=== PATIENT | female | born 1960 | race Caucasian/White ===

== ENCOUNTER 2021-01-07 18:29 | Inpatient (IN) ==
[2021-01-07] MEDS ORDERED: dexAMETHasone**PF** 10 MG/ML VIAL IV ONE (18:57)
--- NOTE | 2021-01-07 19:14 | XRay Report ---
XR chest 1V portable HISTORY: 60 years-old Female Dyspnea acute shortness of breath COMPARISON: Chest radiograph and CTA chest 12/30/2020 TECHNIQUE: Portable AP view of the chest FINDINGS: Cardiac silhouette is mildly enlarged. Progressively worsened patchy bilateral airspace opacities wit h interstitial coarsening. No pneumothorax or large pleural effusion. Degenerative changes of the obdulia ulders and spine. IMPRESSION: Progressively worsened bilateral pulmonary opacities suggestive of viral pneumonia. ACT 112: Negative or not required by law. The above report was generated using voice recognition software. It may contain grammatical, syntax o r spelling errors. Electronically signed by: Jude Steward M.D. 01/07/2021 7:13 PM
[2021-01-07] MEDS ORDERED: SODIUM CHLORIDE 0.9% 1000ML 1,000 ML IV ONE (19:33)
[2021-01-07] MEDS ORDERED: ONDANSETRON INJ 2 MG/ML 2 ML VIAL IV STA (19:33)
[2021-01-07] MEDS ORDERED: ACETAMINOPHEN 500 MG TAB PO STA (19:33)
[2021-01-07] MEDS ORDERED: ALBUT/IPRATROP 3MG/0.5MG NEB 3 ML VIAL NEB STA (19:33)
--- NOTE | 2021-01-07 19:46 | Emergency Department Note ---
Impression & Plan COVID-19, Hypoxia, Fever ED Provider Note INFORMANT: Patient ED PROVIDER(S): Sean Gee MD CHIEF COMPLAINT: Shortness of breath PLAN: Disposition: Admitted Condition: Good Outpatient prescription management: None Referral: None MEDICAL DECISION MAKING: Patient presented to emergency department with worsening Covid symptoms. She was previously diagnosed. The patient was requiring supplemental oxygen with anoxia mask. She did improve into the low 90s. She was given IV Decadron. Chest x-ray was concerning for worsening Covid pneumonia. The patient was given a DuoNeb, saline hydration, Tylenol, and Zofran. She will need further management in the hospital. Consultation was made with the hospitalist service. Patient evaluated in the ER and admitted. Triage Nursing notes reviewed and agree them. Vital Signs: reviewed and remarkable for hypoxia Differential diagnosis: COVID-19, reactive airway disease, pneumonia, pneumothorax, COPD, CHF, infections, cardiac ischemia, pulmonary embolism, musculoskeletal, gastroi ntestinal, as well as other pathologies. Diagnostics interpreted by me: ECG: Twelve-lead ECG reveals normal sinus rhythm at 97 bpm. LVH. Poor R wave progression. No ST elevation. No PVCs or PACs. Cardiac Monitoring: Cardiac monitoring ordered by me: The patient was placed on continuous cardiac monitoring and observed. It revealed a normal sinus rhythm at 100 beats per minute without ectopy or evidence of dysrhythmia. Imaging studies: Chest x-ray concerning for worsening Covid pneumonia. HPI: The patient is a 60 year old female who presents to the Emergency Room with complaints of shortness of breath. The patient was diagnosed with Covid on 12/25 . She was seen in the ER last week and a work-up was consistent with COVID-19. Patient refused monoclonal antibody treatment. Patient is unvaccinated. The patient also notes the following associated symptoms, nausea, weakness, poor appetite, fever. The patient has found no relieving factors. Current pain is rated as 0/10. Patient's is sick with similar symptoms. Pt denies LOC, headache, fevers, chills, diaphoresis, visual changes, neck pain, chest pain, vomiting, abdominal pain, back pain, melena, hematochezia, urinary symptoms, numbness, lymphadenopathy, rash, or other complaints. ROS: See above HPI for pertinent positives & negatives. A total of 10 systems reviewed and were otherwise negative. PAST MEDICAL HISTORY:See Below , kidney stone PAST SURGICAL HISTORY:See Below, FAMILY HISTORY:See Below SOCIAL HISTORY:See Below, HOME MEDICATIONS:See Below ALLERGIES:See Below VITALS:See Below PHYSICAL EXAMINATION: GENERAL: Awake, alert, dyspneic-appearing, in mild distress HENT: Normocephalic, atraumatic. Oropharynx unremarkable except for dry mucous membrane EYES: Normal conjunctiva. Sclera non-icteric. NECK: Inspection normal. Non-tender. Supple. No nuchal rigidity. FROM. No masses. RESPIRATORY: Few scattered rales. Increased respiratory effort. CARDIAC: Normal rate. Normal rhythm. No murmurs. No rubs. Extremities warm and well perfused. Pulses equal. No JVD. GI: Soft, non-distended. No tenderness to palpation. No rebound or guarding. No masses. RECTAL: Deferred. MUSCULOSKELETAL: Atraumatic. Chest examination reveals no tenderness. There is no CVA tenderness to palpation. No joint edema. LOWER EXTREMITIES: Calves are equal size bilaterally and non-tender. No edema. No discoloration. NEURO: Normal sensorium. No sensory or motor deficits noted. SKIN: No rash or jaundice noted. Sean Gee MD Past Med/Surg History Medical History Asthma seasonal asthma, well controlled. Degenerative disc disease lumbar, DENIES Family history of reaction to anesthesia MOTHER AGE 86 HAD HARD TIME COMING OUT OF ANESTHESIA, HAD NO OTHER PROBLEMS W ITH PRIOR SURGERY GERD (gastroesophageal reflux disease) History of kidney stones Hypothyroidism Obese Peptic ulcer disease hx ~1969's Sleep apnea CPAP WITH 2 L OXYGEN AT HS Surgical History History of colonoscopy History of dilatation and curettage History of esophagogastroduodenoscopy (EGD) History of lithotripsy S/P endometrial ablation HX S/P left knee arthroscopy HX Family History Father Hypertension Sister Coronary heart disease Other No family history of adverse response to anesthesia No significant family history Social History Smoking Status: Never smoker Second Hand Exposure: No; Hx Alcohol Use: Yes Hx Substance Use: No Preferred Language: Macedonian Communication Ability: Effective Nurse Clinician Required: No Beliefs That Will Affect Care: None marital status: Current Living Situation: Spouse current occupational status: employed Feels Safe at Home: Yes Assistive Devices: CPAP, Denture - Upper, Denture - Lower, Glasses and Oxygen - at Night Allergies Allergies Allergy/AdvReac Type Severity Reaction Status Date / Time Penicillins Allergy Intermediate HIVES Verified 01/07/21 20:22 atorvastatin AdvReac Intermediate myalgia Verified 01/07/21 20:22 rosuvastatin AdvReac Intermediate myalgia Verified 01/07/21 20:22 Wnnztva-BNH-UnJ Reductase AdvReac Intermediate MUSCLE Verified 01/07/21 20:22 Inhibitor CRAMPS [Kdylzbj-Siq-Ljc Reductase Inhibitor] Home Meds Home Medications Medication Instructions Recorded Confirmed liothyronine 25 mcg tablet 12.5 mcg PO QAM #0 tab 10/13/14 01/07/21 (Cytomel) ibuprofen 200 mg tablet (Advil) 600 mg PO TID PRN #0 tab 10/20/15 01/07/21 tzzxjqbg-pkm-dadaxm 5 mg-zeaxanth 1 cap PO QAM #0 10/20/15 01/07/21 1 mg-bilberry 7.5 mg-herbal capsule (Macular Health Formula) ergocalciferol (vitamin D2) 1,250 50,000 unit PO WK 10/05/18 01/07/21 mcg (50,000 unit) capsule (Vitamin D2) levothyroxine 75 mcg tablet 75 mcg PO DAILYBB 10/05/18 01/07/21 (Levoxyl) famotidine 20 mg tablet (Pepcid) 20 mg PO BID 02/09/20 01/07/21 levocetirizine 5 mg tablet (Xyzal) 5 mg PO HS 04/26/20 01/07/21 montelukast 10 mg tablet 10 mg PO HS PRN 07/09/20 01/07/21 albuterol sulfate 90 mcg/actuation 1 puff INHALATION DIRECTED PRN 12/30/20 01/07/21 aerosol inhaler diclofenac sodium 1 % topical gel 2 g TOPICAL QID PRN 12/30/20 01/07/21 benzonatate 100 mg capsule 200 mg PO BID PRN 01/07/21 01/07/21 cyclosporine 0.05 % eye drops in a 1 drp OPHTHALMIC (EYE) Q12H 01/07/21 01/07/21 dropperette (Restasis) fluticasone 500 mcg-salmeterol 50 1 inh INHALATION Q12H 01/07/21 01/07/21 mcg/dose blistr powdr for inhalation (Advair Diskus) fluticasone propionate 50 2 spray INTRANASAL DAILY 01/07/21 01/07/21 mcg/actuation nasal spray,suspension meloxicam 15 mg tablet 15 mg PO DAILY 01/07/21 01/07/21 phentermine 30 mg capsule 30 mg PO DAILY 01/07/21 01/07/21 prednisone 10 mg tablet 0 mg PO DAILY 01/07/21 01/07/21 Previous Rx's Medication Instructions Recorded topiramate 50 mg tablet 50 mg PO DAILY #30 tab 09/28/20 metformin 500 mg tablet 500 mg PO BID #60 tab 10/27/20 Results & Data (ED) Vital Signs Vital Signs - 24 hr 01/07/21 18:37 01/07/21 20:04 01/07/21 20:08 Temperature 37.8 C H Temperature Source Oral Pulse Rate 100 H Pulse Rate [Apical] 91 H Pulse Rate [Bilateral Apical] 89 Pulse Rhythm Regular Pulse Strength Normal Respiratory Rate 20 24 28 H Respiratory Effort / Characteristics Non-Labored Spontaneous Spontaneous Short of Breath SOB on Exertion Respiratory Depth Normal Respiratory Pattern Regular Blood Pressure 112/77 Blood Pressure [Right Arm] 119/66 Blood Pressure Mean 88 Blood Pressure Mean [Right Arm] 83 Blood Pressure Position Sitting Pulse Oximetry 83 L 90 90 Oxygen Delivery Method Room Air Oxymask Oxygen Flow Rate 9 Sepsis Recent Fever Within 48 Hours No Sepsis New/Unexplained Change in Mental Status No Sepsis Action Taken by Nursing No Action Required 01/07/21 20:27 01/07/21 20:31 01/07/21 22:35 Temperature Temperature Source Pulse Rate 92 H Pulse Rate [Apical] 97 H Pulse Rate [Bilateral Apical] Pulse Rhythm Pulse Strength Respiratory Rate 24 21 Respiratory Effort / Characteristics Respiratory Depth Respiratory Pattern Blood Pressure Blood Pressure [Right Arm] 106/61 Blood Pressure Mean Blood Pressure Mean [Right Arm] 76 Blood Pressure Position Pulse Oximetry 93 94 Oxygen Delivery Method Oxymask Oxymask Oxymask Oxygen Flow Rate 9 9 Sepsis Recent Fever Within 48 Hours Sepsis New/Unexplained Change in Mental Status Sepsis Action Taken by Nursing Laboratory Data Result diagrams: 01/07/21 20:00 01/07/21 20:00 Lab Results 01/07/21 01/07/21 Range/Units 20:00 20:00 WBC 11.35 H (4.8-10.8) K/uL RBC 4.76 (4.2-5.4) M/uL Hgb 13.6 (12.0-16.0) g/dL Hct 41.8 (37-47) % MCV 87.8 (80-100) fL MCH 28.6 (25-34) pg MCHC 32.5 (32-36) g/dL RDW Std Deviation 43.7 (36.4-46.3) fL RDW Coeff of [place] 13.5 (11.5-14.5) % Plt Count 357 (130-400) K/uL MPV 10.1 (7.4-10.4) fL Immature Gran % (Auto) 0.4 % Neut % (Auto) 78.6 % Lymph % (Auto) 11.6 % [place] % (Auto) 8.3 % Eos % (Auto) 0.8 % Baso % (Auto) 0.3 % Neut # (Auto) 8.93 H (1.4-6.5) K/uL Lymph # (Auto) 1.32 (1.2-3.4) K/uL [place] # (Auto) 0.94 H (0.11-0.59) K/uL Eos # (Auto) 0.09 (0-0.5) K/uL Baso # (Auto) 0.03 (0-0.2) K/uL Immature Gran # (Auto) 0.04 H (0.00-0.02) K/uL Sodium 140 (136-145) mmol/L Potassium 3.2 L (3.5-5.1) mmol/L Chloride 103 (98-107) mmol/L Carbon Dioxide 29 (21-32) mmol/L Anion Gap 8.0 (3-11) BUN 13 (7-18) mg/dl Creatinine 0.98 (0.6-1.2) mg/dl Est Cr Clr Drug Dosing 76.3 ml/min Est GFR ( Amer) 72.2 ml/min Est GFR (Non-Af Amer) 62.3 ml/min BUN/Creatinine Ratio 13.2 (10-20) Glucose 152 H (70-99) mg/dl Calcium 8.3 L (8.5-10.1) mg/dl Magnesium 2.6 H (1.8-2.4) mg/dl Total Bilirubin 1.3 H (0.2-1) mg/dl AST 24 (15-37) U/L ALT 20 (12-78) U/L Alkaline Phosphatase 71 (45-117) U/L Troponin I < 0.015 (0-0.045) ng/ml NT-Pro-B Natriuret Pep 280 (0-900) pg/ml Total Protein 7.4 (6.4-8.2) gm/dl Albumin 2.0 L (3.4-5.0) gm/dl Globulin 5.4 H (2.5-4.0) gm/dl Albumin/Globulin Ratio 0.4 L (0.9-2) Administered Medications Remdesivir 200 mg/ Sodium (Chloride) 250 mls @ 125 mls/hr IV ONE STA; Protocol Stop: 01/07/21 22:44 Last Admin: 01/07/21 21:17 Dose: 125 mls/hr Documented by: [id number] Potassium Chloride 20 meq/ (Lactated Ringer's) 1,010 mls @ 50 mls/hr IV .[id number] ONE Stop: 01/08/21 17:01 Last Admin: 01/07/21 21:54 Dose: 50 mls/hr Documented by: [id number] Potassium Chloride (Potassium Chloride Crtab 20 Meq Tabcr) 40 meq PO ONE ONE Stop: 01/07/21 23:01 Last Admin: 01/07/21 22:34 Dose: 40 meq Documented by: [id number] Discontinued Medications Acetaminophen (Acetaminophen 500 Mg Tab) 1,000 mg PO NOW STA Stop: 01/07/21 19:34 Last Admin: 01/07/21 19:57 Dose: 1,000 mg Documented by: [id number] Albuterol (Albut/Ipratrop 3mg/0.5mg Neb 3 Ml Vial) 3 ml NEB NOW STA Stop: 01/07/21 19:34 Last Admin: 01/07/21 20:07 Dose: 3 ml Documented by: [id number] Dexamethasone Sodium Phosphate (DexamethasonePf 10 Mg/Ml Vial) 6 mg IV NOW ONE Stop: 01/07/21 18:58 Last Admin: 01/07/21 19:55 Dose: 6 mg Documented by: [id number] Sodium Chloride (Nss 1000ml) 1,000 mls @ 999 mls/hr IV .[id number] ONE Stop: 01/07/21 20:33 Last Infusion: 01/07/21 21:00 Dose: 0 mls/hr Documented by: [id number] Admin: 01/07/21 19:54 Dose: 999 mls/hr Documented by: [id number] Ondansetron HCl (Ondansetron Inj 2 Mg/Ml 2 Ml Vial) 4 mg IV NOW STA Stop: 01/07/21 19:34 Last Admin: 01/07/21 19:55 Dose: 4 mg Documented by: [id number] Potassium Chloride (Potassium Chloride Crtab 20 Meq Tabcr) 40 meq PO NOW STA Stop: 01/07/21 20:18 Last Admin: 01/07/21 20:34 Dose: 40 meq Documented by: [id number] Imaging Data Radiologist's Impression: Chest X-Ray 01/07/21 18:58 XR chest 1V portable HISTORY: 60 years-old Female Dyspnea acute shortness of breath COMPARISON: Chest radiograph and CTA chest 12/30/2020 TECHNIQUE: Portable AP view of the chest FINDINGS: Cardiac silhouette is mildly enlarged. Progressively worsened patchy bilateral airspace opacities with interstitial coarsening. No pneumothorax or large pleural effusion. Degenerative changes of the shoulders and spine. IMPRESSION: Progressively worsened bilateral pulmonary opacities suggestive of viral pneumonia. ACT 112: Negative or not required by law. The above report was generated using voice recognition software. It may contain grammatical, syntax or spelling errors. Electronically signed by: Jude Steward M.D. 01/07/2021 7:13 PM Discharge Plan Visit Data Chief Complaint: Shortness of Breath/Dyspnea Stated Complaint: SHORTNESS OF BREATH,COUGH ED Provider: Sean Gee Discharge Problem: COVID-19, Hypoxia, Fever Forms Stand Alone Forms: [facility] Prescriptions Prescriptions: No Action liothyronine [Cytomel] 25 mcg Tablet 12.5 mcg PO QAM Qty: 0 RF: 0 ibuprofen [Advil] 200 mg Tablet 600 mg PO TID PRN (Reason: Pain) Qty: 0 RF: 0 Macular Health Formula 5-1-7.5 mg Capsule 1 cap PO QAM Qty: 0 RF: 0 topiramate 50 mg tablet 50 mg PO DAILY Qty: 30 RF: 0 Hold Instructions: needs follow up appt for refill metformin 500 mg tablet 500 mg PO BID Qty: 60 RF: 1 levothyroxine [Levoxyl] 75 mcg tablet 75 mcg PO DAILYBB RF: 0 ergocalciferol (vitamin D2) [Vitamin D2] 50,000 unit capsule 50,000 unit PO WK RF: 0 famotidine [Pepcid] 20 mg Tablet 20 mg PO BID RF: 0 montelukast 10 mg tablet 10 mg PO HS PRN (Reason: ALLERGIES) RF: 0 albuterol sulfate 90 mcg/actuation Hfa Aerosol Inhaler 1 puff INHALATION DIRECTED PRN (Reason: Shortness Of Breath Or Wheezing) RF: 0 diclofenac sodium [Voltaren] 1 % Gel 2 g TOPICAL QID PRN (Reason: Pain) RF: 0 prednisone 10 mg tablet 0 mg PO DAILY RF: 0 meloxicam 15 mg Tablet 15 mg PO DAILY RF: 0 phentermine 30 mg Capsule 30 mg PO DAILY RF: 0 benzonatate 100 mg Capsule 200 mg PO BID PRN (Reason: Cough) RF: 0 fluticasone propion-salmeterol [Advair Diskus] 500-50 mcg/dose Blister With Device 1 inh INHALATION Q12H RF: 0 fluticasone propionate [Flonase] 50 mcg/actuation [place],Suspension 2 spray INTRANASAL DAILY RF: 0 Restasis 0.05 % Dropperette 1 drp OPHTHALMIC (EYE) Q12H RF: 0 levocetirizine [Xyzal] 5 mg Tablet 5 mg PO HS RF: 0 Referrals Referrals: Cally Hyman PA-C [Primary Care Provider] -
[2021-01-07 20:14] LABS: Basophils # (auto) 0.03 K/uL (0-0.2); Basophils % (auto) 0.3 %; Eosinophils # (auto) 0.09 K/uL (0-0.5); Eosinophils % (auto) 0.8 %; Hematocrit (blood only) 41.8 % (37-47); Hemoglobin 13.6 g/dL (12.0-16.0); Immature Granulocytes # (auto) 0.04 K/uL (0.00-0.02); Immature Granulocytes % (auto) 0.4 %; Lymphocytes # (auto) 1.32 K/uL (1.2-3.4); Lymphocytes % (auto) 11.6 %; Mean Corpuscular Hemoglobin 28.6 pg (25-34); Mean Corpuscular Hgb Conc 32.5 g/dL (32-36); Mean Corpuscular Volume 87.8 fL (80-100); Mean Platelet Volume 10.1 fL (7.4-10.4); Monocytes # (auto) 0.94 K/uL (0.11-0.59); Monocytes % (auto) 8.3 %; Neutrophils # (auto) 8.93 K/uL (1.4-6.5); Neutrophils % (auto) 78.6 %; Platelet Count 357 K/uL (130-400); RDW Coefficient of Variation 13.5 % (11.5-14.5); RDW Standard Deviation 43.7 fL (36.4-46.3); Red Blood Count 4.76 M/uL (4.2-5.4); White Blood Count 11.35 K/uL (4.8-10.8)
[2021-01-07] MEDS ORDERED: POTASSIUM CHLORIDE CRTAB 20 MEQ TABCR PO STA (20:17)
[2021-01-07 20:32] LABS: Alanine Aminotransferase 20 U/L (12-78); Aspartate Aminotransferase 24 U/L (15-37); BUN Creatinine Ratio 13.2 (10-20); Blood Urea Nitrogen 13 mg/dl (7-18); Calcium 8.3 mg/dl (8.5-10.1); Carbon Dioxide 29 mmol/L (21-32); Chloride 103 mmol/L (98-107); Creatinine Clr Calc Pharmacy 76.3 ml/min; Est GFR (African American) 72.2 ml/min; Est GFR (Non-African American) 62.3 ml/min; Glucose 152 mg/dl (70-99); Magnesium 2.6 mg/dl (1.8-2.4); Potassium 3.2 mmol/L (3.5-5.1); Sodium 140 mmol/L (136-145)
--- NOTE | 2021-01-07 20:33 | History & Physical Report ---
Date of Service January 07, 2021 Assessment & Plan (1) Acute hypoxemic respiratory failure: Plan: Secondary to severe COVID-19 pneumonia Symptoms of about 4 weeks duration BEVERLEY on CPAP hypothyroidism, euthyroid as of recent inpatient TSH prediabetes on Metformin, hemoglobin A1c of 5.26 Jun 2020 Hypokalemia secondary to poor p.o. intake Medical telemetry Supplemental O2 Decadron for severe COVID-19 pneumonia. Remdesivir initial dose given severity of illness. Antiviral efficacy may be limited due to month-long duration of patient's illness. Defer decision regarding subsequent Remdesivir administration to AM provider. Pulmonary consult if without improvement. Basal insulin given anticipated hyperglycemia from Decadron, ISS BG goal 1 10-1 40, carb count coverage, update hemoglobin A1c Replace potassium DVT prophylaxis. Lovenox subcu Full code Patient requests for daughter to be updated of her progress. Ms. Jodie Robles, contact #[phone]. Text document was generated using [employer] voice recognition software. It may contain grammatical or spelling errors. Kindly contact undersigned for clarification of any documentation item in question. History of Present Illness Chief Complaint: Worsening shortness of breath, COVID Primary Care Provider: Cally Hyman PA-C History obtained from patient, family, and records. Medical history significant for BEVERLEY on CPAP, bronchial asthma, GERD, hypothyroidism, prediabetes, hyperlipidemia/statin intolerance. Last confinement 2012 for renal colic status post intervention. Patient seen at PCPs office 2 weeks ago for dry cough/cold symptoms of two weeks duration. No chest pain, no S OB. No known recent COVID-19 contacts. Patient has not received COVID-19 vaccination. Outpatient COVID-19 test was positive. Supportive measures recommended by PCP. Patient subsequently noted worsening shortness of breath with fever and cough with nausea vomiting symptoms. Patient consulted ER last December 30, 2020 CT chest no pulmonary embolus. Viral type pneumonitis/early COVID-19 pneumonia on imaging. Patient discharged home as she did not require supplemental O2 as per documentation. Patient offered monoclonal antibody treatment as she was deemed eligible but she refused. Worsening symptoms at home without chest pain. Patient subsequently tested positive for Covid 19 a few days ago. Patient returned to ER this afternoon with her . O2 sats 80s on room air upon arrival at the ER. Decadron, neb treatment given at the ER. Medical History as above Surgical History : Hysteroscopy with endometrial biopsy, knee surgery Family History : Asthma, breast cancer, DM, heart disease Personal/Social history : Non-smoker, occasional EtOH intake, medical claims employment Allergies Allergy/AdvReac Type Severity Reaction Status Date / Time Penicillins Allergy Intermediate HIVES Verified 01/07/21 20:22 atorvastatin AdvReac Intermediate myalgia Verified 01/07/21 20:22 rosuvastatin AdvReac Intermediate myalgia Verified 01/07/21 20:22 Gohghlh-CVT-YhD Reductase AdvReac Intermediate MUSCLE Verified 01/07/21 20:22 Inhibitor CRAMPS [Qgwdecf-Qzv-Zyl Reductase Inhibitor] Home Medications Medication Instructions Recorded Confirmed Type liothyronine 25 mcg tablet 12.5 mcg PO QAM #0 tab 10/13/14 01/07/21 History (Cytomel) ibuprofen 200 mg tablet (Advil) 600 mg PO TID PRN #0 tab 10/20/15 01/07/21 History gbsnutzs-arn-hjrduq 5 mg-zeaxanth 1 cap PO QAM #0 10/20/15 01/07/21 History 1 mg-bilberry 7.5 mg-herbal capsule ([facility] Formula) ergocalciferol (vitamin D2) 1,250 50,000 unit PO WK 10/05/18 01/07/21 History mcg (50,000 unit) capsule (Vitamin D2) levothyroxine 75 mcg tablet 75 mcg PO DAILYBB 10/05/18 01/07/21 History (Levoxyl) famotidine 20 mg tablet (Pepcid) 20 mg PO BID 02/09/20 01/07/21 History levocetirizine 5 mg tablet (Xyzal) 5 mg PO HS 04/26/20 01/07/21 History montelukast 10 mg tablet 10 mg PO HS PRN 07/09/20 01/07/21 History topiramate 50 mg tablet 50 mg PO DAILY #30 tab 09/28/20 01/07/21 Rx metformin 500 mg tablet 500 mg PO BID #60 tab 10/27/20 01/07/21 Rx albuterol sulfate 90 mcg/actuation 1 puff INHALATION DIRECTED PRN 12/30/20 01/07/21 History aerosol inhaler diclofenac sodium 1 % topical gel 2 g TOPICAL QID PRN 12/30/20 01/07/21 History benzonatate 100 mg capsule 200 mg PO BID PRN 01/07/21 01/07/21 History cyclosporine 0.05 % eye drops in a 1 drp OPHTHALMIC (EYE) Q12H 01/07/21 01/07/21 History dropperette (Restasis) fluticasone 500 mcg-salmeterol 50 1 inh INHALATION Q12H 01/07/21 01/07/21 History mcg/dose blistr powdr for inhalation (Advair Diskus) fluticasone propionate 50 2 spray INTRANASAL DAILY 01/07/21 01/07/21 History mcg/actuation nasal spray,suspension meloxicam 15 mg tablet 15 mg PO DAILY 01/07/21 01/07/21 History phentermine 30 mg capsule 30 mg PO DAILY 01/07/21 01/07/21 History prednisone 10 mg tablet 0 mg PO DAILY 01/07/21 01/07/21 History Past Med/Surg History Medical History Asthma seasonal asthma, well controlled. Degenerative disc disease lumbar, DENIES Family history of reaction to anesthesia MOTHER AGE 86 HAD HARD TIME COMING OUT OF ANESTHESIA, HAD NO OTHER PROBLEMS WITH PRIOR SURGERY GERD (gastroesophageal reflux disease) History of kidney stones Hypothyroidism Obese Peptic ulcer disease hx ~1970's Sleep apnea CPAP WITH 2 L OXYGEN AT HS Surgical History History of colonoscopy History of dilatation and curettage History of esophagogastroduodenoscopy (EGD) History of lithotripsy S/P endometrial ablation HX S/P left knee arthroscopy HX Family History Father Hypertension Sister Coronary heart disease Other No family history of adverse response to anesthesia No significant family history Social History Smoking Status: Never smoker Second Hand Exposure: No; Hx Alcohol Use: Yes Hx Substance Use: No Preferred Language: Slovenian Communication Ability: Effective Home Hospice Rn Required: No Beliefs That Will Affect Care: None marital status: Current Living Situation: Spouse current occupational status: employed Feels Safe at Home: Yes Assistive Devices: CPAP, Denture - Upper, Denture - Lower, Glasses and Oxygen - at Night Review of Systems Review of Systems: As per HPI, all 10 systems reviewed, all other ROS negative Physical Exam Physical Exam: GENERAL: Slightly uncomfortable, slightly anxious, morbidly obese, minimal respiratory distress SKIN: Normal color, warm HEENT: Bespectacled, [place] palpebral conjunctivae, no ptosis, dry buccal mucosa, O2 mask in place NECK : Supple, short neck, no tenderness CHEST : Decreased breath sounds, no tenderness HEART : RRR, no obvious murmurs ABDOMEN: Some distention, nontender EXTREMITIES : Minimal LE swelling, no LE tenderness, no other conspicuous deformities noted NEUROLOGIC : Coherent, no facial asymmetry, no other gross focality Results & Data Results & Data ([facility]) Vital Signs (Past 12 Hours) Vital Signs Temp Pulse Pulse Pulse Resp BP BP 01/07/21 20:31 92 H 24 01/07/21 20:08 91 H 28 H 01/07/21 20:04 89 24 119/66 01/07/21 18:37 37.8 C H 100 H 20 112/77 Pulse Ox 01/07/21 20:31 93 01/07/21 20:08 90 01/07/21 20:04 90 01/07/21 18:37 83 L Laboratory Results Laboratory Results WBC 11.35 K/uL (4.8-10.8) H 01/07/21 20:00 RBC 4.76 M/uL (4.2-5.4) 01/07/21 20:00 Hgb 13.6 g/dL (12.0-16.0) 01/07/21 20:00 Hct 41.8 % (37-47) 01/07/21 20:00 MCV 87.8 fL (80-100) 01/07/21 20:00 MCH 28.6 pg (25-34) 01/07/21 20:00 MCHC 32.5 g/dL (32-36) 01/07/21 20:00 RDW Std Deviation 43.7 fL (36.4-46.3) 01/07/21 20:00 RDW Coeff of [place] 13.5 % (11.5-14.5) 01/07/21 20:00 Plt Count 357 K/uL (130-400) 01/07/21 20:00 MPV 10.1 fL (7.4-10.4) 01/07/21 20:00 Immature Gran % (Auto) 0.4 % 01/07/21 20:00 Neut % (Auto) 78.6 % 01/07/21 20:00 Lymph % (Auto) 11.6 % 01/07/21 20:00 [place] % (Auto) 8.3 % 01/07/21 20:00 Eos % (Auto) 0.8 % 01/07/21 20:00 Baso % (Auto) 0.3 % 01/07/21 20:00 Neut # (Auto) 8.93 K/uL (1.4-6.5) H 01/07/21 20:00 Lymph # (Auto) 1.32 K/uL (1.2-3.4) 01/07/21 20:00 [place] # (Auto) 0.94 K/uL (0.11-0.59) H 01/07/21 20:00 Eos # (Auto) 0.09 K/uL (0-0.5) 01/07/21 20:00 Baso # (Auto) 0.03 K/uL (0-0.2) 01/07/21 20:00 Immature Gran # (Auto) 0.04 K/uL (0.00-0.02) H 01/07/21 20:00 Sodium 140 mmol/L (136-145) 01/07/21 20:00 Potassium 3.2 mmol/L (3.5-5.1) L 01/07/21 20:00 Chloride 103 mmol/L (98-107) 01/07/21 20:00 Carbon Dioxide 29 mmol/L (21-32) 01/07/21 20:00 Anion Gap 8.0 (3-11) 01/07/21 20:00 BUN 13 mg/dl (7-18) 01/07/21 20:00 Creatinine 0.98 mg/dl (0.6-1.2) 01/07/21 20:00 Est Cr Clr Drug Dosing 76.3 ml/min 01/07/21 20:00 Est GFR ( Amer) 72.2 ml/min 01/07/21 20:00 Est GFR (Non-Af Amer) 62.3 ml/min 01/07/21 20:00 BUN/Creatinine Ratio 13.2 (10-20) 01/07/21 20:00 Glucose 152 mg/dl (70-99) H 01/07/21 20:00 Calcium 8.3 mg/dl (8.5-10.1) L 01/07/21 20:00 Magnesium 2.6 mg/dl (1.8-2.4) H 01/07/21 20:00 AST 24 U/L (15-37) 01/07/21 20:00 ALT 20 U/L (12-78) 01/07/21 20:00 Albumin 2.0 gm/dl (3.4-5.0) L 01/07/21 20:00 Impressions Chest X-Ray 01/07/21 18:58 XR chest 1V portable HISTORY: 60 years-old Female Dyspnea acute shortness of breath COMPARISON: Chest radiograph and CTA chest 12/30/2020 TECHNIQUE: Portable AP view of the chest FINDINGS: Cardiac silhouette is mildly enlarged. Progressively worsened patchy bilateral airspace opacities with interstitial coarsening. No pneumothorax or large pleural effusion. Degenerative changes of the shoulders and spine. IMPRESSION: Progressively worsened bilateral pulmonary opacities suggestive of viral pneumonia. ACT 112: Negative or not required by law. The above report was generated using voice recognition software. It may contain grammatical, syntax or spelling errors. Electronically signed by: Jude Steward M.D. 01/07/2021 7:13 PM Diagnostic Findings EKG as per my interpretation : Rate 95, NSR, LAD, LAFB, LVH, T wave flattening inferior and lateral leads
[2021-01-07 20:37] LABS: Albumin Globulin Ratio 0.4 (0.9-2); Alkaline Phosphatase 71 U/L (45-117); Bilirubin,Total 1.3 mg/dl (0.2-1); Globulin 5.4 gm/dl (2.5-4.0); NT Pro B Type Natriuretic Pept 280 pg/ml (0-900); Total Protein 7.4 gm/dl (6.4-8.2); Troponin I < 0.015 ng/ml (0-0.045)
[2021-01-07] MEDS ORDERED: REMDESIVIR 200 MG in SODIUM CHLORIDE 0.9% 210 ML IV STA (20:45)
[2021-01-07] MEDS ORDERED: POTASSIUM CHLORIDE 20 MEQ in LACTATED RINGER'S 1,000 ML IV ONE (20:50)
[2021-01-07] MEDS ORDERED: ACETAMINOPHEN 325 MG TAB PO PRN (20:51)
[2021-01-07] MEDS ORDERED: POTASSIUM CHLORIDE CRTAB 20 MEQ TABCR PO ONE (23:00)
[2021-01-07] MEDS ORDERED: CARBOHYDRATES FOR HYPOGLYCEMIA PO PRN (23:30)
[2021-01-07] MEDS ORDERED: GLUCOSE 10 TABS/TUBE PO PRN (23:30)
[2021-01-07] MEDS ORDERED: DEXTROSE 50% 50 ML SYRINGE IV PRN (23:30)
[2021-01-07] MEDS ORDERED: GLUCAGON FOR INJ 1 MG VIAL SQ PRN (23:30)
[2021-01-07] MEDS ORDERED: PROMETHAZINE HCL 12.5 MG in SODIUM CHLORIDE 0.9% 50 ML IV PRN (23:30)
[2021-01-07] MEDS ORDERED: MONTELUKAST SODIUM 10 MG TABLET PO PRN (23:30)
[2021-01-07] MEDS ORDERED: BENZONATATE 100 MG CAPSULE PO PRN (23:30)
[2021-01-07] MEDS ORDERED: GLUCOSE 40% GEL 15 GM TUBE PO PRN (23:30)
[2021-01-07] MEDS ORDERED: LEVALBUTEROL 1.25MG/0.5ML NEB INH PRN (23:30)
[2021-01-07] MEDS ORDERED: INSULIN GLARGINE SOLOSTAR 100 UNITS/ML 3 ML PEN SC SCH (23:30)
[2021-01-07] MEDS ORDERED: DICLOFENAC SOD 1% GEL 100 GM TUBE EXT PRN (23:30)
[2021-01-07] MEDS ORDERED: IPRATROPIUM BROMIDE NEB SOLN 0.02% 2.5 ML VIAL INH PRN (23:30)
[2021-01-07] MEDS ORDERED: XOPENEX/ATROVENT 1.25mg/0.5MG NEB COMBO NEB PRN (23:30)
[2021-01-08] MEDS: FAMOTIDINE 20 MG TAB PO SCH ×3 (00:31→20:40)
[2021-01-08] MEDS: guaiFENesin 600 MG TABCR PO SCH ×3 (00:32→20:40)
[2021-01-08] MEDS ORDERED: dexAMETHasone 6 MG in SYRINGE 0 ML IV ONE (05:00)
[2021-01-08] MEDS: LEVOTHYROXINE SODIUM 75 MCG TABLET PO SCH (06:35)
[2021-01-08 07:09] LABS: Basophils # (auto) 0.02 K/uL (0-0.2); Basophils % (auto) 0.3 %; Hematocrit (blood only) 35.9 % (37-47); Hemoglobin 11.8 g/dL (12.0-16.0); Immature Granulocytes # (auto) 0.03 K/uL (0.00-0.02); Immature Granulocytes % (auto) 0.4 %; Lymphocytes # (auto) 0.71 K/uL (1.2-3.4); Lymphocytes % (auto) 9.4 %; Mean Corpuscular Hemoglobin 28.9 pg (25-34); Mean Corpuscular Hgb Conc 32.9 g/dL (32-36); Monocytes # (auto) 0.27 K/uL (0.11-0.59); Monocytes % (auto) 3.6 %; Neutrophils # (auto) 6.54 K/uL (1.4-6.5); Neutrophils % (auto) 86.3 %; Platelet Count 320 K/uL (130-400); RDW Coefficient of Variation 13.6 % (11.5-14.5); RDW Standard Deviation 43.6 fL (36.4-46.3); Red Blood Count 4.08 M/uL (4.2-5.4); White Blood Count 7.57 K/uL (4.8-10.8)
[2021-01-08 07:20] LABS: Estimated Average Glucose 137 mg/dl; Hemoglobin A1C 6.4 % (4.5-5.6)
[2021-01-08 07:39] LABS: Albumin Level 1.7 gm/dl (3.4-5.0); BUN Creatinine Ratio 17.4 (10-20); C Reactive Protein 18.9 mg/dl (0-0.29); Calcium 7.8 mg/dl (8.5-10.1); Est GFR (African American) 83.3 ml/min; Est GFR (Non-African American) 71.9 ml/min; Potassium 3.6 mmol/L (3.5-5.1)
[2021-01-08 07:41] LABS: Albumin Globulin Ratio 0.3 (0.9-2); Total Protein 6.7 gm/dl (6.4-8.2)
[2021-01-08 07:46] LABS: Base Excess ABG 1.7 mEq/L (-9-1.8); HCO3 ABG 26 mmol/L (19-24); Oxygen Saturation ABG 95.2 % (90-95); PCO2 ABG 38 mmHg (35-46); PO2 ABG 71 mmHg (80-95); pH ABG 7.45 (7.35-7.45)
[2021-01-08 07:47] LABS: Allen Test Pos (Pos)
--- NOTE | 2021-01-08 08:34 | XRay Report ---
XR chest 1V portable CLINICAL HISTORY: low o2 TECHNIQUE: Single frontal radiograph of the chest was obtained. Comparison: Comparison is made to chest one view 01/07/2021 FINDINGS: No lines and tubes are seen. The cardiomediastinal silhouette is obscured. Again noted is underinflat ion of the bilateral lungs. Multiple airspace opacities are seen bilaterally, unchanged. No evidence of pleural effusion or pneumothorax. IMPRESSION: Multifocal airspace opacities may represent atelectasis, pneumonia, and/or aspiration. ACT 112: Negative or not required by law. Electronically signed by: Margarito Powell M.D. 01/08/2021 8:33 AM
[2021-01-08] MEDS ORDERED: dexAMETHasone 6 MG in SYRINGE 0 ML IV SCH (09:00)
[2021-01-08] MEDS: FLUTICASONE PROPIONATE NA SPR 16 GM BTL SCH (10:00)
[2021-01-08] MEDS: FLUTICASONE/VILANTEROL 200/25MCG 14 PUFFS/INHALER INH SCH (10:08)
[2021-01-08] MEDS: MELOXICAM 7.5 MG TAB PO SCH (10:09)
[2021-01-08] MEDS: TOPIRAMATE 50 MG TAB PO SCH (10:10)
[2021-01-08] MEDS: LIOTHYRONINE SODIUM 25 MCG TAB PO SCH (10:13)
[2021-01-08] MEDS: ENOXAPARIN INJ 40 MG/0.4 ML SYR SQ SCH (10:14)
[2021-01-08 15:50] LABS: Appearance Urine Cloudy (Clear); Bacteria Urine Automated 1+ (Negative); Blood Urine Negative (Negative); Color Urine Orange; Epithelial Cell Urine Auto >30 /lpf (0-5); Glucose Urine UA 1+ (Negative); Ketones Urine Trace (Negative); Leukocyte Esterase Urine 1+ (Negative); Nitrite Urine Positive (Negative); Protein Urine 1+ (Negative); RBC Urine Automated 0-4 /hpf (0-4); Urobilinogen Urine Negative (Negative); WBC Urine Automated >30 /hpf (0-5); pH Urine 5.5 (4.5-7.5)
[2021-01-08 15:56] LABS: Bilirubin Urine 1+ (Negative)
[2021-01-08 16:17] LABS: Mucus Urine Present (None Prsent)
--- NOTE | 2021-01-08 19:45 | Hospitalist Progress Note ---
Date of Service January 08, 2021 Assessment & Plan (1) Acute hypoxemic respiratory failure: Plan: COVID 19 Pneumonia Present on admission with worsening shortness of breath Testing positive for Covid 19 on 12/25 CXR showed Progressively worsened bilateral pulmonary opacities suggestive of viral pneumonia. Received dexamethasone and IV remdesivir Due to onset of symptoms and positive test on12/25 will not continue remdesivir since it would not provide any benefit We will continue on them severe 6 mg IV daily Continue incentive spirometry and flutter valve Currently on high flow oxygen with FiO2 80% Continue monitor closely BEVERLEY on CPAP Hypothyroidism continue levothyroxine Diabetes type 2 Hgba1c 6.4 on 01/07/21 Continue Lantus and insulin sliding scale Continue monitor Hypokalemia K 3.2 on admission K replaced on admission DVT prophylaxis. Lovenox subcu Full code Disposition Ms. Jodie Robles, contact #[phone]. Admission and Anticipated Discharge Date Admission Date: January 07, 2021 Subjective Patient was seen and examined for follow-up of shortness of breath due to COVID- 19 Lying in bed with mild respiratory distress with who was tested positive share the same room with her in the ER Currently she is on high flow oxygen supplement She said that she becomes SOB with minimal exertion She said that she continues to have difficulty to bring the phelgm up denies any fever, palpitation, dizziness and fever Review of Systems Review of Systems: All systems reviewed & are unremarkable except as noted in Subjective Physical Exam Physical Exam: General- No acute distress Head- atraumatic Eyes- PERRL, EOMI, ENT- oropharynx clear Neck- supple, no JVD Lungs- +diminished BS Heart- regular rhythm; no murmur Abdomen- normal bowel sounds, soft, nontender Extremities- no calf tenderness Neuro- alert, oriented x 3; PERRL, EOMI; no facial palsy; no dysarthria Skin- warm & dry Results & Data Results & Data ([facility]) Vital Signs (Past 12 Hours) Vital Signs Temp Pulse Resp BP Pulse Ox 01/08/21 18:41 80 20 95 01/08/21 16:19 81 22 99 01/08/21 14:00 72 16 116/71 93 01/08/21 08:32 37.2 C 75 24 110/71 95
[2021-01-08] MEDS ORDERED: SODIUM CHLORIDE 0.9% 10ML FLUSH IV SCH (20:00)
[2021-01-08] MEDS ORDERED: REMDESIVIR 100 MG in SODIUM CHLORIDE 0.9% 230 ML IV SCH (20:00)
[2021-01-08] MEDS: INSULIN GLARGINE SOLOSTAR 100 UNITS/ML 3 ML PEN SC SCH (20:49)
[2021-01-08] MEDS: XYZAL~ORDER AWAITING ACTION SCH (22:47)
[2021-01-08] MEDS: RESTASIS~ORDER AWAITING ACTION SCH (22:47)
[2021-01-09] MEDS: LEVOTHYROXINE SODIUM 75 MCG TABLET PO SCH (06:47)
[2021-01-09] MEDS: dexAMETHasone 6 MG in SYRINGE 0 ML IV SCH (08:33)
[2021-01-09] MEDS: ENOXAPARIN INJ 40 MG/0.4 ML SYR SQ SCH (08:35)
[2021-01-09] MEDS: MELOXICAM 7.5 MG TAB PO SCH (08:37)
[2021-01-09] MEDS: FLUTICASONE PROPIONATE NA SPR 16 GM BTL SCH (08:38)
[2021-01-09] MEDS: LIOTHYRONINE SODIUM 25 MCG TAB PO SCH (08:39)
[2021-01-09] MEDS: guaiFENesin 600 MG TABCR PO SCH ×2 (08:40→21:11)
[2021-01-09] MEDS: FLUTICASONE/VILANTEROL 200/25MCG 14 PUFFS/INHALER INH SCH (08:40)
[2021-01-09] MEDS: TOPIRAMATE 50 MG TAB PO SCH (08:40)
[2021-01-09] MEDS: FAMOTIDINE 20 MG TAB PO SCH ×2 (08:40→21:59)
[2021-01-09] MEDS: RESTASIS~ORDER AWAITING ACTION SCH ×4 (08:51→17:04)
[2021-01-09] MEDS: XYZAL~ORDER AWAITING ACTION SCH ×4 (08:51→17:04)
--- NOTE | 2021-01-09 09:43 | Electrocardiogram Report ---
Test Reason : Blood Pressure : / mmHG Vent. Rate : 097 BPM Atrial Rate : 097 BPM P-R Int : 126 ms QRS Dur : 078 ms QT Int : 356 ms P-R-T Axes : 039 -10 036 degrees QTc Int : 452 ms Poor data quality, interpretation may be adversely affected Normal sinus rhythm Minimal voltage criteria for LVH, may be normal variant Cannot rule out Anterior infarct , age undetermined Abnormal ECG When compared with ECG of 30-DEC-2020 16:44, Nonspecific T wave abnormality now evident in Lateral leads Confirmed by Monster Martinez ([id number]) on 01/09/2021 9:42:37 AM Referred By: REFERRED SELF Confirmed By:Monster Martinez
[2021-01-09] MEDS ORDERED: FUROSEMIDE INJ 20 MG/2 ML VIAL IV ONE (16:50)
[2021-01-09] MEDS ORDERED: POTASSIUM CHLORIDE CRTAB 20 MEQ TABCR PO STA (16:50)
[2021-01-09] MEDS ORDERED: FUROSEMIDE 40 MG/4 ML VIAL IV ONE (17:15)
[2021-01-09] MEDS: cefTRIAXone SODIUM 2,000 MG in DEXTROSE 5% 50 ML IV SCH (19:02)
[2021-01-09] MEDS: INSULIN GLARGINE SOLOSTAR 100 UNITS/ML 3 ML PEN SC SCH (22:00)
--- NOTE | 2021-01-09 23:20 | Hospitalist Progress Note ---
Date of Service January 09, 2021 Assessment & Plan (1) Acute hypoxemic respiratory failure: Plan: COVID 19 Pneumonia Present on admission with worsening shortness of breath Testing positive for Covid 19 on 12/25 CXR showed Progressively worsened bilateral pulmonary opacities suggestive of viral pneumonia. Received dexamethasone and IV remdesivir Due to onset of symptoms and positive test on12/25 will not continue remdesivir since it would not provide any benefit We will continue on them severe 6 mg IV daily Continue incentive spirometry and flutter valve Currently on high flow oxygen with FiO2 80% We will give Lasix 20 mg IV x1 Continue monitor closely Abnormal UA UA positive for nitrate, leukocyte and bacteria Urine culture grew pinpoint - pending We will start Rocephin IV 1 g daily BEVERLEY on CPAP Hypothyroidism continue levothyroxine Diabetes type 2 Hgba1c 6.4 on 01/07/21 Continue Lantus and insulin sliding scale Continue monitor Hypokalemia K 3.2 on admission K stable DVT prophylaxis. Lovenox subcu Full code Disposition Ms. Jodie Robles, contact #[phone]. Admission and Anticipated Discharge Date Admission Date: January 07, 2021 Subjective Patient was seen and examined for follow-up of shortness of breath due to COVID- 19 Lying in bed with mild respiratory distress She said her breathing is much better She said that she becomes SOB with minimal exertion She said that she continues to have difficulty to bring the phelgm up denies any fever, palpitation, dizziness and fever Review of Systems Review of Systems: All systems reviewed & are unremarkable except as noted in Subjective Physical Exam Physical Exam: General- No acute distress Head- atraumatic Eyes- PERRL, EOMI, ENT- oropharynx clear Neck- supple, no JVD Lungs- +diminished BS Heart- regular rhythm; no murmur Abdomen- normal bowel sounds, soft, nontender Extremities- no calf tenderness Neuro- alert, oriented x 3; PERRL, EOMI; no facial palsy; no dysarthria Skin- warm & dry Results & Data Results & Data ([facility]) Vital Signs (Past 12 Hours) Vital Signs Temp Pulse Resp BP Pulse Ox 01/09/21 20:00 36.6 C 62 18 114/73 94 01/09/21 17:04 36.4 C L 62 18 107/67 94 01/09/21 13:50 59 L 24 103/62 97
[2021-01-10] MEDS: XYZAL~ORDER AWAITING ACTION SCH ×4 (00:29→23:54)
[2021-01-10] MEDS: RESTASIS~ORDER AWAITING ACTION SCH ×4 (00:29→23:54)
[2021-01-10] MEDS: LEVOTHYROXINE SODIUM 75 MCG TABLET PO SCH (06:21)
[2021-01-10] MEDS: LIOTHYRONINE SODIUM 25 MCG TAB PO SCH (08:13)
[2021-01-10] MEDS: TOPIRAMATE 50 MG TAB PO SCH (08:13)
[2021-01-10] MEDS: MELOXICAM 7.5 MG TAB PO SCH (08:16)
[2021-01-10] MEDS: FLUTICASONE PROPIONATE NA SPR 16 GM BTL SCH (08:17)
[2021-01-10] MEDS: FLUTICASONE/VILANTEROL 200/25MCG 14 PUFFS/INHALER INH SCH (08:17)
[2021-01-10] MEDS: guaiFENesin 600 MG TABCR PO SCH ×2 (08:18→21:22)
[2021-01-10] MEDS: FAMOTIDINE 20 MG TAB PO SCH ×2 (08:19→21:40)
[2021-01-10] MEDS: dexAMETHasone 6 MG in SYRINGE 0 ML IV SCH (08:20)
[2021-01-10 08:52] LABS: Albumin Level 1.7 gm/dl (3.4-5.0); BUN Creatinine Ratio 28.6 (10-20); C Reactive Protein 4.37 mg/dl (0-0.29); Calcium 7.9 mg/dl (8.5-10.1); Creatinine Clr Calc Pharmacy 84.4 ml/min; Est GFR (African American) 83.3 ml/min; Est GFR (Non-African American) 71.9 ml/min; Potassium 3.6 mmol/L (3.5-5.1)
[2021-01-10 08:55] LABS: Albumin Globulin Ratio 0.4 (0.9-2); Bilirubin,Total 0.6 mg/dl (0.2-1); Globulin 4.3 gm/dl (2.5-4.0)
[2021-01-10] MEDS: ENOXAPARIN INJ 40 MG/0.4 ML SYR SQ SCH (13:31)
[2021-01-10] MEDS: cefTRIAXone SODIUM 2,000 MG in DEXTROSE 5% 50 ML IV SCH (18:06)
--- NOTE | 2021-01-10 20:21 | Hospitalist Progress Note ---
Date of Service January 10, 2021 Assessment & Plan (1) Acute hypoxemic respiratory failure: Plan: COVID 19 Pneumonia Present on admission with worsening shortness of breath Testing positive for Covid 19 on 12/25 CXR showed Progressively worsened bilateral pulmonary opacities suggestive of viral pneumonia. Received dexamethasone and IV remdesivir Due to onset of symptoms and positive test on12/25 will not continue remdesivir since it would not provide any benefit We will continue on them severe 6 mg IV daily Inflammatory marker trending down. CRP from 18 to 4 and ESR 59 today Continue incentive spirometry and flutter valve Currently on high flow oxygen with FiO2 80% We will give Lasix 20 mg IV x1 Continue monitor closely Abnormal UA UA positive for nitrate, leukocyte and bacteria Urine culture grew multiple organism-mostly contamination will DC Rocephin after tomorrow dose BEVERLEY on CPAP Hypothyroidism continue levothyroxine Diabetes type 2 Hgba1c 6.4 on 01/07/21 Continue Lantus and insulin sliding scale Continue monitor Hypokalemia K 3.2 on admission K stable DVT prophylaxis. Lovenox subcu Full code Disposition Ms. Jodie Robles, contact #[phone]. Admission and Anticipated Discharge Date Admission Date: January 07, 2021 Subjective Patient was seen and examined for follow-up of shortness of breath due to COVID- 19 Lying in bed with no respiratory distress She said her breathing is much better She has been requiring less oxygen supplement denies any fever, palpitation, dizziness and fever Review of Systems Review of Systems: All systems reviewed & are unremarkable except as noted in Subjective Physical Exam Physical Exam: General- No acute distress Head- atraumatic Eyes- PERRL, EOMI, ENT- oropharynx clear Neck- supple, no JVD Lungs- +diminished BS Heart- regular rhythm; no murmur Abdomen- normal bowel sounds, soft, nontender Extremities- no calf tenderness Neuro- alert, oriented x 3; PERRL, EOMI; no facial palsy; no dysarthria Skin- warm & dry Results & Data Results & Data ([facility]) Vital Signs (Past 12 Hours) Vital Signs Temp Pulse Pulse Resp BP Pulse Ox 01/10/21 19:00 36.5 C 58 L 18 135/82 93 01/10/21 16:23 36.6 C 57 L 18 120/74 97 01/10/21 08:26 36.5 C 62 18 101/58 L 93
[2021-01-10] MEDS: INSULIN GLARGINE SOLOSTAR 100 UNITS/ML 3 ML PEN SC SCH (22:01)
[2021-01-10] MEDS ORDERED: POTASSIUM CHLORIDE CRTAB 20 MEQ TABCR PO STA (22:33)
[2021-01-11 00:57] LABS: Magnesium 2.5 mg/dl (1.8-2.4); Thyroid Stimulating Hormone 0.966 uIu/ml (0.300-4.500)
[2021-01-11] MEDS: LEVOTHYROXINE SODIUM 75 MCG TABLET PO SCH (06:14)
[2021-01-11] MEDS: RESTASIS~ORDER AWAITING ACTION SCH ×2 (09:31→15:40)
[2021-01-11] MEDS: ENOXAPARIN INJ 40 MG/0.4 ML SYR SQ SCH (09:31)
[2021-01-11] MEDS: XYZAL~ORDER AWAITING ACTION SCH ×2 (09:31→15:40)
[2021-01-11] MEDS: guaiFENesin 600 MG TABCR PO SCH ×2 (09:33→20:17)
[2021-01-11] MEDS: FAMOTIDINE 20 MG TAB PO SCH ×2 (09:34→20:17)
[2021-01-11] MEDS: MELOXICAM 7.5 MG TAB PO SCH (09:34)
[2021-01-11] MEDS: FLUTICASONE PROPIONATE NA SPR 16 GM BTL SCH (09:35)
[2021-01-11] MEDS: LIOTHYRONINE SODIUM 25 MCG TAB PO SCH (09:36)
[2021-01-11] MEDS: TOPIRAMATE 50 MG TAB PO SCH (09:37)
[2021-01-11] MEDS: dexAMETHasone 6 MG in SYRINGE 0 ML IV SCH (09:38)
[2021-01-11] MEDS: FLUTICASONE/VILANTEROL 200/25MCG 14 PUFFS/INHALER INH SCH (09:38)
[2021-01-11] MEDS: cefTRIAXone SODIUM 2,000 MG in DEXTROSE 5% 50 ML IV SCH (16:38)
--- NOTE | 2021-01-11 16:59 | Hospitalist Progress Note ---
Date of Service January 11, 2021 Assessment & Plan (1) Acute hypoxemic respiratory failure: Plan: COVID 19 Pneumonia Present on admission with worsening shortness of breath Testing positive for Covid 19 on 12/25 CXR showed Progressively worsened bilateral pulmonary opacities suggestive of viral pneumonia. Received dexamethasone and IV remdesivir Due to onset of symptoms and positive test on12/25 will not continue remdesivir since it would not provide any benefit We will continue on them severe 6 mg IV daily Inflammatory marker trending down. CRP from 18 to 4 and ESR 59 Continue incentive spirometry and flutter valve Current on 3 L NC We will give Lasix 20 mg IV x1 Continue monitor closely Abnormal UA UA positive for nitrate, leukocyte and bacteria Urine culture grew multiple organism-mostly contamination We will discontinue Rocephin BEVERLEY on CPAP Hypothyroidism continue levothyroxine Diabetes type 2 Hgba1c 6.4 on 01/07/21 Continue Lantus and insulin sliding scale Continue monitor Hypokalemia K 3.2 on admission K stable DVT prophylaxis. Lovenox subcu Full code Disposition Ms. Jodie Robles, contact #[phone]. Admission and Anticipated Discharge Date Admission Date: January 07, 2021 Subjective Patient was seen and examined for follow-up of shortness of breath due to COVID- 19 Sitting at the edge of the bed with no respiratory distress She said her breathing is much better Denies any fever, palpitation, dizziness and fever Review of Systems Review of Systems: All systems reviewed & are unremarkable except as noted in Subjective Physical Exam Physical Exam: General- No acute distress Head- atraumatic Eyes- PERRL, EOMI, ENT- oropharynx clear Neck- supple, no JVD Lungs- +diminished BS Heart- regular rhythm; no murmur Abdomen- normal bowel sounds, soft, nontender Extremities- no calf tenderness Neuro- alert, oriented x 3; PERRL, EOMI; no facial palsy; no dysarthria Skin- warm & dry Results & Data Results & Data ([facility]) Vital Signs (Past 12 Hours) Vital Signs Temp Pulse Pulse Resp BP Pulse Ox 01/11/21 16:29 36.5 C 57 L 18 143/79 H 96 01/11/21 15:58 60 01/11/21 13:13 36.5 C 75 20 91/60 L 93 01/11/21 12:07 52 L 01/11/21 09:00 52 L 01/11/21 06:40 36.4 C L 49 L 18 114/72 94
[2021-01-11] MEDS: INSULIN GLARGINE SOLOSTAR 100 UNITS/ML 3 ML PEN SC SCH (20:06)
[2021-01-11] MEDS ORDERED: FUROSEMIDE INJ 20 MG/2 ML VIAL IV ONE (21:08)
[2021-01-12] MEDS: XYZAL~ORDER AWAITING ACTION SCH ×3 (00:08→15:14)
[2021-01-12] MEDS: RESTASIS~ORDER AWAITING ACTION SCH ×3 (00:08→15:14)
[2021-01-12] MEDS: LEVOTHYROXINE SODIUM 75 MCG TABLET PO SCH (05:37)
[2021-01-12] MEDS: FLUTICASONE PROPIONATE NA SPR 16 GM BTL SCH (08:22)
[2021-01-12] MEDS: dexAMETHasone 6 MG in SYRINGE 0 ML IV SCH (08:22)
[2021-01-12] MEDS: FLUTICASONE/VILANTEROL 200/25MCG 14 PUFFS/INHALER INH SCH (08:22)
[2021-01-12] MEDS: ENOXAPARIN INJ 40 MG/0.4 ML SYR SQ SCH (08:23)
[2021-01-12] MEDS: LIOTHYRONINE SODIUM 25 MCG TAB PO SCH (08:23)
[2021-01-12] MEDS: TOPIRAMATE 50 MG TAB PO SCH (08:23)
[2021-01-12] MEDS: FAMOTIDINE 20 MG TAB PO SCH ×2 (08:23→21:04)
[2021-01-12] MEDS: MELOXICAM 7.5 MG TAB PO SCH (08:23)
[2021-01-12] MEDS: guaiFENesin 600 MG TABCR PO SCH ×2 (08:23→21:04)
[2021-01-12 09:07] LABS: BUN Creatinine Ratio 26.8 (10-20); C Reactive Protein 2.64 mg/dl (0-0.29); Calcium 8.1 mg/dl (8.5-10.1); Creatinine Clr Calc Pharmacy 97.8 ml/min; Est GFR (African American) 99.7 ml/min; Potassium 3.7 mmol/L (3.5-5.1)
[2021-01-12 09:10] LABS: Albumin Globulin Ratio 0.5 (0.9-2); Bilirubin,Total 0.8 mg/dl (0.2-1); Globulin 4.4 gm/dl (2.5-4.0); Total Protein 6.4 gm/dl (6.4-8.2)
[2021-01-12] MEDS ORDERED: FUROSEMIDE INJ 20 MG/2 ML VIAL IV ONE (10:10)
--- NOTE | 2021-01-12 10:45 | Hospitalist Progress Note ---
Date of Service January 12, 2021 Assessment & Plan (1) Acute hypoxemic respiratory failure: Plan: COVID 19 Pneumonia Presented with worsening shortness of breath Tested positive for Covid 19 on 12/25 CXR showed Progressively worsened bilateral pulmonary opacities suggestive of viral pneumonia. Continue dexamethasone Got only one dose of remdesivir on admission. Due to timeline, this was not continued Monitor inflammatory markers Incentive spirometry and flutter valve Educated on self proning Current on 2 L NC Give Lasix 20 mg IV x1 Wean oxygen. Will need 2 step rpi Abnormal UA UA positive for nitrate, leukocyte and bacteria Urine culture grew multiple organism-mostly contamination Denied urinary symptoms. Antibiotics had been discontinued We will discontinue Rocephin BEVERLEY on CPAP Hypothyroidism continue levothyroxine Diabetes type 2 Hgba1c 6.4 on 01/07/21 Continue Lantus and insulin sliding scale while inpatient/on dexa Continue monitor Lifestyle modification education provided Hypokalemia K 3.2 on admission K stable now DVT prophylaxis. Lovenox subcu Full code Disposition Ms. Jodie Lottedward, contact #[phone]. Admission and Anticipated Discharge Date Admission Date: January 07, 2021 Subjective 60-year-old woman with BEVERLEY on CPAP, asthma, GERD, hypothyroidism, prediabetes who presented with 2 weeks of dry cough Being managed for acute hypoxic respiratory failure due to COVID-19 pneumonia. Patient seen and examined this morning Reports feeling generally better. Still reports cough and occasional shortness of breath. Denies any dizziness, headache Denies any chest pain, palpitation Denies any nausea, vomiting, abdominal pain, diarrhea constipation Denies dysuria, frequency, urgency Denies any fevers, chills Physical Exam Constitutional: + well hydrated and + obese; no acute distress Eyes: PERRL, conjunctivae normal, anicteric sclerae ENMT: external ear and nose normal, oropharynx normal Respiratory: On 2 L/min nasal oxygen, not in respiratory distress. Diminished breath sounds. Basilar crackles Cardiovascular: RRR, S1-S2, no pedal edema Gastrointestinal (Abdomen): normal bowel sounds, soft, nontender, no hepatosplenomegaly Musculoskeletal: no cyanosis or clubbing, extremities motor strength 5/5 Neurologic: PERRL, EOMI, accommodation nl, no face palsy, no dysarthria Psychiatric: A+Ox3, euthymic affect Results & Data Results & Data ([place]) Vital Signs (Past 12 Hours) Vital Signs Temp Pulse Pulse Resp BP Pulse Ox 01/12/21 08:17 36.5 C 62 18 99/62 L 94 01/12/21 03:46 36.6 C 95 H 16 119/71 93 01/12/21 03:10 51 L 01/11/21 22:49 36.6 C 55 L 18 136/83 98 Laboratory Results Abnormal lab results 01/11/21 01/11/21 01/11/21 Range/Units 13:11 16:27 19:51 ESR (0-30) mm/hr Chloride (98-107) mmol/L BUN (7-18) mg/dl BUN/Creatinine Ratio (10-20) POC Glucose 189 H 223 H 210 H (70-99) mg/dl Calcium (8.5-10.1) mg/dl C-Reactive Protein (0-0.29) mg/dl Albumin (3.4-5.0) gm/dl Globulin (2.5-4.0) gm/dl Albumin/Globulin Ratio (0.9-2) 01/12/21 01/12/21 Range/Units 08:12 08:12 ESR 54 H (0-30) mm/hr Chloride 110 H (98-107) mmol/L BUN 20 H (7-18) mg/dl BUN/Creatinine Ratio 26.8 H (10-20) POC Glucose (70-99) mg/dl Calcium 8.1 L (8.5-10.1) mg/dl C-Reactive Protein 2.64 H (0-0.29) mg/dl Albumin 2.0 L (3.4-5.0) gm/dl Globulin 4.4 H (2.5-4.0) gm/dl Albumin/Globulin Ratio 0.5 L (0.9-2)
[2021-01-12] MEDS: INSULIN GLARGINE SOLOSTAR 100 UNITS/ML 3 ML PEN SC SCH (20:50)
[2021-01-13] MEDS: RESTASIS~ORDER AWAITING ACTION SCH ×3 (00:47→14:23)
[2021-01-13] MEDS: XYZAL~ORDER AWAITING ACTION SCH ×3 (00:47→14:23)
[2021-01-13] MEDS: LEVOTHYROXINE SODIUM 75 MCG TABLET PO SCH (05:43)
[2021-01-13 06:29] LABS: Hematocrit (blood only) 39.2 % (37-47); Hemoglobin 12.8 g/dL (12.0-16.0); Mean Corpuscular Hemoglobin 28.3 pg (25-34); Mean Corpuscular Hgb Conc 32.7 g/dL (32-36); Mean Corpuscular Volume 86.5 fL (80-100); Mean Platelet Volume 9.8 fL (7.4-10.4); Platelet Count 371 K/uL (130-400); RDW Coefficient of Variation 13.5 % (11.5-14.5); RDW Standard Deviation 42.6 fL (36.4-46.3); Red Blood Count 4.53 M/uL (4.2-5.4); White Blood Count 12.45 K/uL (4.8-10.8)
[2021-01-13 06:57] LABS: BUN Creatinine Ratio 28.5 (10-20); Calcium 8.4 mg/dl (8.5-10.1); Creatinine Clr Calc Pharmacy 86.3 ml/min; Est GFR (African American) 85.7 ml/min; Potassium 3.9 mmol/L (3.5-5.1)
[2021-01-13] MEDS: FLUTICASONE/VILANTEROL 200/25MCG 14 PUFFS/INHALER INH SCH (08:04)
[2021-01-13] MEDS: FLUTICASONE PROPIONATE NA SPR 16 GM BTL SCH (08:04)
[2021-01-13] MEDS: ENOXAPARIN INJ 40 MG/0.4 ML SYR SQ SCH (08:05)
[2021-01-13] MEDS: FAMOTIDINE 20 MG TAB PO SCH (08:05)
[2021-01-13] MEDS: TOPIRAMATE 50 MG TAB PO SCH (08:06)
[2021-01-13] MEDS: MELOXICAM 7.5 MG TAB PO SCH (08:06)
[2021-01-13] MEDS: guaiFENesin 600 MG TABCR PO SCH (08:06)
[2021-01-13] MEDS: LIOTHYRONINE SODIUM 25 MCG TAB PO SCH (08:08)
[2021-01-13] MEDS: dexAMETHasone 6 MG in SYRINGE 0 ML IV SCH (08:12)
--- NOTE | 2021-01-13 10:05 | Discharge Summary ---
Date of Service January 13, 2021 Admission HPI Per Admitting Provider History obtained from patient, family, and records. Medical history significant for BEVERLEY on CPAP, bronchial asthma, GERD, hypothyroidism, prediabetes, hyperlipidemia/statin intolerance. Last confinement 2012 for renal colic status post intervention. Patient seen at PCPs office 2 weeks ago for dry cough/cold symptoms of two weeks duration. No chest pain, no S OB. No known recent COVID-19 contacts. Patient has not received COVID-19 vaccination. Outpatient COVID-19 test was positive. Supportive measures recommended by PCP. Patient subsequently noted worsening shortness of breath with fever and cough with nausea vomiting symptoms. Patient consulted ER last December 30, 2020 CT chest no pulmonary embolus. Viral type pneumonitis/early COVID-19 pneumonia on imaging. Patient discharged home as she did not require supplemental O2 as per documentation. Patient offered monoclonal antibody treatment as she was deemed eligible but she refused. Worsening symptoms at home without chest pain. Patient subsequently tested positive for Covid 19 a few days ago. Patient returned to ER this afternoon with her . O2 sats 80s on room air upon arrival at the ER. Decadron, neb treatment given at the ER. Medical History as above Surgical History : Hysteroscopy with endometrial biopsy, knee surgery Family History : Asthma, breast cancer, DM, heart disease Personal/Social history : Non-smoker, occasional EtOH intake, medical claims employment Admission Exam Per Admitting Provider GENERAL: Slightly uncomfortable, slightly anxious, morbidly obese, minimal respiratory distress SKIN: Normal color, warm HEENT: Bespectacled, [place] palpebral conjunctivae, no ptosis, dry buccal mucosa, O2 mask in place NECK : Supple, short neck, no tenderness CHEST : Decreased breath sounds, no tenderness HEART : RRR, no obvious murmurs ABDOMEN: Some distention, nontender EXTREMITIES : Minimal LE swelling, no LE tenderness, no other conspicuous deformities noted NEUROLOGIC : Coherent, no facial asymmetry, no other gross focality Principal Diagnosis Acute hypoxic respiratory failure COVID-19 pneumonia Discharge Exam Constitutional + well hydrated and + obese; no acute distress Eyes PERRL, conjunctivae normal, anicteric sclerae ENMT external ear and nose normal, oropharynx normal Respiratory Not in respiratory distress Diminished breath sounds lung base Cardiovascular RRR S1 S2 Gastrointestinal (Abdomen) normal bowel sounds, soft, nontender, no hepatosplenomegaly Musculoskeletal no cyanosis or clubbing, extremities motor strength 5/5 Neurologic PERRL, EOMI, accommodation nl, no face palsy, no dysarthria Psychiatric A+Ox3, euthymic affect Discharge Data Allergies Allergy/AdvReac Type Severity Reaction Status Date / Time Penicillins Allergy Intermediate HIVES Verified 01/07/21 20:22 atorvastatin AdvReac Intermediate myalgia Verified 01/07/21 20:22 rosuvastatin AdvReac Intermediate myalgia Verified 01/07/21 20:22 Jpgnfhk-KPI-DkY Reductase AdvReac Intermediate MUSCLE Verified 01/07/21 20:22 Inhibitor CRAMPS [Ypcidum-Niy-Upo Reductase Inhibitor] Consultations 01/07/21 20:31 ED Decision to Admit Stat Hospital Course (1) Acute hypoxemic respiratory failure: COVID 19 Pneumonia Presented with worsening shortness of breath Tested positive for Covid 19 on 12/25 CXR showed Progressively worsened bilateral pulmonary opacities suggestive of viral pneumonia. Treated with dexamethasone Got only one dose of remdesivir on admission. Due to timeline, this was not continued Required oxygen supplementation. Oxygen was weaned off 2 Step showed no oxygen at rest but required 6l/min with activity. Portable oxygen was arrange prior to discharge Patient to follow up with PCP Abnormal Urinalysis UA positive for nitrate, leukocyte and bacteria Urine culture grew multiple organism-mostly contamination Denied urinary symptoms. Antibiotics was discontinued Hypothyroidism continue levothyroxine Diabetes type 2 Hgba1c 6.4 on 01/07/21 Continue home metformin Lifestyle modification education provided Total Time Total Time Spent Total Time Spent (In Minutes): 45 Total Time Includes: Examination of the Patient, Discharge Planning and Medication Reconciliation Discharge Plan Discharge Items Patient Disposition: Home - Self-Care Reason For Visit: Shortness of breath Discharge Diagnosis: Acute hypoxic respiratory failure COVID-19 pneumonia Activity: Resume your previous activity Non-emergency contact: Primary Care Provider Call non-emergency contact if: you have any medication questions and your symptoms worsen Follow-up/Referrals: Cally Hymna PA-C [Primary Care Provider] - Diet: Carb Consistent or DM2 and Heart Healthy Addtl Attending Provider Instructions: Mrs. Jackson You came to the hospital due to worsening cough and shortness of breath. You were evaluated and found to have COVID-19 pneumonia. You also required oxygen. You were started on treatment and your symptoms improved. You are being discharged with oxygen at 6 L/min only with activity. Please ensure follow-up with your family doctor. It was a pleasure taking care of you Addtl Product Delivery Specialist Provider Instructions: Home Isolation COVID-19 Instructions The following information about Home Isolation is from the CDC Website: https://www.cdc.gov/coronavirus/2019-ncov/hcp/xjcypmzk-vnmpklf-mywwgn.html Stay home except to get medical care People who are mildly ill with COVID-19 are able to isolate at home during their illness. You should restrict activities outside your home, except for getting medical care. Do not go to work, school, or public areas. Avoid using public transportation, ride-sharing, or taxis. Separate yourself from other people and animals in your home People: As much as possible, you should stay in a specific room and away from other people in your home. Also, you should use a separate bathroom, if available. Animals: You should restrict contact with pets and other animals while you are sick with COVID-19, just like you would around other people. Although there have not been reports of pets or other animals becoming sick with COVID-19, it is still recommended that people sick with COVID-19 limit contact with animals until more information is known about the virus. When possible, have another member of your household care for your animals while you are sick. If you are sick with COVID-19, avoid contact with your pet, including petting, snuggling, being kissed or licked, and sharing food. If you must care for your pet or be around animals while you are sick, wash your hands before and after you interact with pets and wear a face mask. Call ahead before visiting your doctor If you have a medical appointment, call the healthcare provider and tell them that you have or may have COVID-19. This will help the healthcare providers office take steps to keep other people from getting infected or exposed. Wear a face mask You should wear a face mask when you are around other people (e.g., sharing a ro om or vehicle) or pets and before you enter a healthcare providers office. If you are not able to wear a face mask (for example, because it causes trouble breathing), then people who live with you should not stay in the same room with you, or they should wear a face mask if they enter your room. Cover your coughs and sneezes Cover your mouth and nose with a tissue when you cough or sneeze. Throw used tissues in a lined trash can. Immediately wash your hands with soap and water for at least 20 seconds or, if soap and water are not available, clean your hands with an alcohol-based hand safety and occupational health manager that contains at least 60% alcohol. Clean your hands often Wash your hands often with soap and water for at least 20 seconds, especially after blowing your nose, coughing, or sneezing; going to the bathroom; and before eating or preparing food. If soap and water are not readily available, use an alcohol-based hand safety and occupational health manager with at least 60% alcohol, covering all surfaces of your hands and rubbing them together until they feel dry. Soap and water are the best option if hands are visibly dirty. Avoid touching your eyes, nose, and mouth with unwashed hands. Avoid sharing personal household items You should not share dishes, drinking glasses, cups, eating utensils, towels, or bedding with other people or pets in your home. After using these items, they should be washed thoroughly with soap and water. Clean all high-touch surfaces everyday High touch surfaces include counters, tabletops, doorknobs, bathroom fixtures, toilets, phones, keyboards, tablets, and bedside tables. Also, clean any surfaces that may have blood, stool, or body fluids on them. Use a household cleaning spray or wipe, according to the label instructions. Labels contain instructions for safe and effective use of the cleaning product including precautions you should take when applying the product, such as wearing gloves and making sure you have good ventilation during use of the product. Monitor your symptoms Seek prompt medical attention if your illness is worsening (e.g., difficulty breathing).Beforeseeking care, call your healthcare provider and tell them that you have, or are being evaluated for, COVID-19. Put on a face mask before you enter the facility. These steps will help the healthcare providers office to keep other people in the office or waiting room from getting infected or exposed. Ask your healthcare provider to call the local or [facility] health department. Persons who are placed under active monitoring or facilitated self- monitoring should follow instructions provided by their local health department or occupational health professionals, as appropriate. When working with your local health department check their available hours. If you have a medical emergency and need to call 911, notify the dispatch personnel that you have, or are being evaluated for COVID-19. If possible, put on a face mask before emergency medical services arrive. Discontinuing home isolation Patients with confirmed COVID-19 should remain under home isolation precautions until the risk of secondary transmission to others is thought to be low. The decision to discontinue home isolation precautions should be made on a huong e-by-case basis, in consultation with healthcare providers and state and local health departments. Pending Studies at Discharge: No Stand-Alone Forms: [facility], Smoking Cessation Medications and DC Order Prescriptions: Continued liothyronine [Cytomel] 25 mcg Tablet 12.5 mcg PO QAM Qty: 0 RF: 0 ibuprofen [Advil] 200 mg Tablet 600 mg PO TID PRN (Reason: Pain) Qty: 0 RF: 0 Macular Health Formula 5-1-7.5 mg Capsule 1 cap PO QAM Qty: 0 RF: 0 topiramate 50 mg tablet 50 mg PO DAILY Qty: 30 RF: 0 Hold Instructions: needs follow up appt for refill metformin 500 mg tablet 500 mg PO BID Qty: 60 RF: 1 levothyroxine [Levoxyl] 75 mcg tablet 75 mcg PO DAILYBB RF: 0 ergocalciferol (vitamin D2) [Vitamin D2] 50,000 unit capsule 50,000 unit PO WK RF: 0 famotidine [Pepcid] 20 mg Tablet 20 mg PO BID RF: 0 montelukast 10 mg tablet 10 mg PO HS PRN (Reason: ALLERGIES) RF: 0 diclofenac sodium 1 % Gel 2 g TOPICAL QID PRN (Reason: Pain) RF: 0 prednisone 10 mg tablet 0 mg PO DAILY RF: 0 meloxicam 15 mg Tablet 15 mg PO DAILY RF: 0 phentermine 30 mg Capsule 30 mg PO DAILY RF: 0 benzonatate 100 mg Capsule 200 mg PO BID PRN (Reason: Cough) RF: 0 fluticasone propion-salmeterol [Advair Diskus] 500-50 mcg/dose Blister With Device 1 inh INHALATION Q12H RF: 0 fluticasone propionate 50 mcg/actuation [place],Suspension 2 spray INTRANASAL DAILY RF: 0 Restasis 0.05 % Dropperette 1 drp OPHTHALMIC (EYE) Q12H RF: 0 albuterol sulfate 90 mcg/actuation Hfa Aerosol Inhaler 1 puff INHALATION DIRECTED PRN (Reason: Shortness Of Breath Or Wheezing) Qty: 6.7 RF: 0 levocetirizine [Xyzal] 5 mg Tablet 5 mg PO HS RF: 0 Discharge Orders: Discharge Order (Routine); Ordered 01/13/21 Ordered By: Lorri Lewis/Other Patient Handouts: A1C, Prediabetes, 5 Steps for Eating Healthier Admission Data Admit Date/Time: 01/07/21 20:45 Attending Provider: Lorri Montemayor I. Admit Provider: Bhanu Barroso Primary Care Provider: Cally Hyman Other Providers: Bhanu Barroso ; Blanca Grace Other Interventions: Discharge Summary Assessment (RN) Last Done: 01/13/21 12:43
== END 2021-01-13 18:01 | disposition home or self-care (01) | DRG 177 ==
LOC: ED 18:29 → EDINP 20:45 → SUATTDRO 20:45 → 2N 23:25
DX: K21.9 Gastro-esophageal reflux disease without esophagitis; E11.9 Type 2 diabetes mellitus without complications; Z82.49 Family history of ischemic heart disease and other diseases of the circulatory system; U07.1 COVID-19; Z88.0 Allergy status to penicillin; J96.01 Acute respiratory failure with hypoxia; E03.9 Hypothyroidism, unspecified; J12.82 Pneumonia due to coronavirus disease 2019